=== PATIENT | male | born 1980 | race African-American/Black ===

== ENCOUNTER → 2021-05-24 | Day surgery (SDC) | payer OTHER ==
[~2021-05-24] VITALS: Ht 188 cm; Wt 108.9 kg
[~2021-05-24] MED LIST: PRILOSEC20 MG PO
[2021-05-24 13:33] LABS: HCT 43.6 % (42.0-52.0); HGB 14.9 g/dl (13.2-18.0); MCH 30.2 pg (25.0-31.0); MCHC 34.2 g/dL (32.0-36.0); MCV 88.3 fL (78.0-100.0); MPV 8.6 fL (6.0-9.5); RBC 4.94 M/uL (4.70-6.00); RDW 13.2 % (11.5-14.0); WBC 8.3 K/uL (4.0-10.5)
[2021-05-24 14:02] LABS: ALBUMIN 3.7 g/dL (3.4-5.0); BILIRUBIN - TOTAL 0.4 mg/dL (0.2-1.0); CREATININE 0.94 mg/dL (0.67-1.17); GLOBULIN (CALCULATION) 3.4 g/dL; POTASSIUM 4.1 mmol/L (3.5-5.1); TOTAL PROTEIN 7.1 g/dL (6.4-8.2)
== END | disposition home or self-care (01) ==
LOC: FAS 13:02
PROVIDERS: Orthopaedic Surgery
DX: S76.112A Strain of left quadriceps muscle, fascia and tendon, initial encounter (principal); S83.92XA Sprain of unspecified site of left knee, initial encounter; X58.XXXA Exposure to other specified factors, initial encounter; Y92.830 Public park as the place of occurrence of the external cause
CPT/HCPCS: 36415; 80053; J0690; J1100; J1170; J2250; J2405; J2704; J2795; J3010; J7120